=== PATIENT | male | born 1985 | race Caucasian/White ===

== ENCOUNTER 2016-06-04 09:38 | Emergency (ER) | payer SELFPAY ==
[2016-06-04] MEDS ORDERED: OXYCODONE-ACETAMINOPHEN 5-325 MG TABLET PO ONE (10:26)
--- NOTE | 2016-06-04 10:28 | ER Document Report ---
ED Medical Screen (RME) - General Chief Complaint: Abscess Stated Complaint: ELBOW PAIN Time seen by provider: 10:23 Mode of Arrival: Ambulatory Information source: Patient TRAVEL OUTSIDE OF THE [place] IN LAST 30 DAYS: No - HPI Patient complains to provider of: ABSCESS LEFT ELBOW Onset: Other - 2 DAYS Onset/Duration: Gradual Quality of pain: Throbbing Severity: Moderate Pain Level: 4 Associated Symptoms: Other - SWELLING AND DRAINING RIGHT ELBOW Exacerbated by: Movement Relieved by: Denies Similar symptoms previously: Yes - HX MRSA Recently seen / treated by doctor: No - Related Data Smoking: Non-smoker Frequency of alcohol use: None Drug Abuse: None Pertinent History: HOSPITALIZED FOR 7 DAYS WITH ABSCESSES/MRSA Allergies/Adverse Reactions: Sulfa (Sulfonamide Antibiotics) Allergy (Verified 06/04/16 10:08) Past Medical History - Past Medical History Cardiac Medical History: Reports: Hx Hypertension Musculoskeltal Medical History: Reports Hx Arthritis Skin Medical History: Reports Hx MRSA Psychiatric Medical History: Reports: Hx Depression Infectious Medical History: Reports: Hx MRSA Past Surgical History: Reports: Hx Orthopedic Surgery - left ACL repair - Immunizations Hx Diphtheria, Pertussis, Tetanus Vaccination: No
[2016-06-04 10:59] LABS: ABSOLUTE EOSINOPHILS # (AUTO) 0.1 10^3/uL (0.0-0.6); ABSOLUTE LYMPHOCYTES (AUTO) 1.6 10^3/uL (0.5-4.7); ABSOLUTE NEUT (AUTO) 10.8 10^3/uL (1.7-8.2); BASOPHILS % (AUTO) 0.3 % (0-2); EOSINOPHILS % (AUTO) 0.6 % (0-6); HEMATOCRIT 36.5 % (37.9-51.0); HEMOGLOBIN 12.4 g/dL (13.5-17.0); HGB HCT DIFFERENCE 0.7; LYMPHOCYTES % (AUTO) 11.7 % (13-45); MEAN CORPUSCULAR HEMOGLOBIN 28.9 pg (27.0-33.4); MEAN CORPUSCULAR VOLUME 85 fl (80-97); MONOCYTES % (AUTO) 7.4 % (3-13); RED BLOOD COUNT 4.29 10^6/uL (4.35-5.55); RED CELL DISTRIBUTION WIDTH 13.5 % (11.5-14.0); WHITE BLOOD COUNT 13.4 10^3/uL (4.0-10.5)
[2016-06-04] MEDS ORDERED: CEFTRIAXONE 1 GM/D5W RTU 50 ML IV ONE (11:10)
[2016-06-04] MEDS ORDERED: LIDOCAINE 1%/EPINEPHRINE INJ 20 ML VIAL INJ ONE (11:14)
[2016-06-04 11:20] LABS: ALANINE AMINOTRANSFERASE 30 U/L (21-72); ALBUMIN 3.8 g/dL (3.5-5.0); ALKALINE PHOSPHATASE 54 U/L (38-126); ANION GAP 10 (5-19); ASPARTATE AMINO TRANSFERASE 24 U/L (17-59); BILIRUBIN,TOTAL 0.3 mg/dL (0.2-1.3); BLOOD UREA NITROGEN 11 mg/dL (7-20); CALCIUM 9.2 mg/dL (8.4-10.2); CARBON DIOXIDE 29 mmol/L (22-30); CHLORIDE 101 mmol/L (98-107); CREATININE RESULT 0.77 mg/dL (0.52-1.25); GLUCOSE 91 mg/dL (75-110); POTASSIUM 4.4 mmol/L (3.6-5.0); SODIUM 139.7 mmol/L (137-145); TOTAL PROTEIN 6.3 g/dL (6.3-8.2)
--- NOTE | 2016-06-04 12:41 | ER Document Report ---
ED Skin Rash/Insect Bite/Abscs - General Chief Complaint: Abscess Stated Complaint: ELBOW PAIN Mode of Arrival: Ambulatory Notes: Patient has a painful, erythematous, swollen right elbow which he says began as a small questionable bite at the elbow Friday. It's been progressively enlarging since then. Last night, he accidentally hit the elbow against a wall and it started draining pus. He has had previous abscesses that had to be drained, but not in this location. Does not have any fevers. No medical illnesses. Allergic to sulfa. TRAVEL OUTSIDE OF THE [place] IN LAST 30 DAYS: No - Related Data Allergies/Adverse Reactions: Sulfa (Sulfonamide Antibiotics) Allergy (Verified 06/04/16 10:08) Past Medical History - General Information source: Patient - Social History Smoking Status: Smoker,Current Status Unk Cigarette use (# per day): No Frequency of alcohol use: None Drug Abuse: None Family History: Reviewed & Not Pertinent, CAD, CVA, Hypertension Patient has suicidal ideation: No - Past Medical History Cardiac Medical History: Reports: Hx Hypertension Musculoskeltal Medical History: Reports Hx Arthritis Skin Medical History: Reports Hx MRSA Psychiatric Medical History: Reports: Hx Depression Infectious Medical History: Reports: Hx MRSA Past Surgical History: Reports: Hx Orthopedic Surgery - left ACL repair - Immunizations Hx Diphtheria, Pertussis, Tetanus Vaccination: No Review of Systems - Review of Systems Constitutional: denies: Fever Cardiovascular: denies: Chest pain Respiratory: denies: Cough, Short of breath, Wheezing Gastrointestinal: denies: Abdominal pain, Diarrhea, Vomiting Skin: See HPI Physical Exam - Vital signs Vitals: Temp Pulse Resp BP Pulse Ox 98.9 F 58 L 20 114/55 L 99 06/04/16 12:52 06/04/16 12:52 06/04/16 12:52 06/04/16 12:52 06/04/16 12:52 Interpretation: Normal - Notes Notes: PHYSICAL EXAMINATION: GENERAL: Well-appearing, in no acute distress. Vital signs are all essentially normal. HEAD: Atraumatic, normocephalic. LUNGS: Breath sounds clear and equal bilaterally. HEART: Regular rate and rhythm without murmurs. ABDOMEN: Soft, nontender. No guarding or rebound. EXTREMITIES: Right elbow is swollen, erythematous, and tender to touch at the olecranon. There is some break in the skin at the olecranon with what looks like some small amount of pus oozing out. No pain to move the elbow joint through full range of motion. All other joints are with normal range of motion without pain. SKIN: Warm, dry, no rashes. Course - Vital Signs Vital signs: Temp Pulse Resp BP Pulse Ox 98.9 F 58 L 20 114/55 L 99 06/04/16 12:52 06/04/16 12:52 06/04/16 12:52 06/04/16 12:52 06/04/16 12:52 - Laboratory Result Diagrams: 06/04/16 10:35 06/04/16 10:35 Laboratory results interpreted by me: 06/04/16 10:35 WBC 13.4 H RBC 4.29 L Hgb 12.4 L Hct 36.5 L Seg Neutrophils % 80.0 H Lymphocytes % 11.7 L Absolute Neutrophils 10.8 H Procedures - Incision and Drainage Right Elbow Type: Simple Anesthetic type: 1% Lidocaine w/epi mL's of anesthetic: 4 Blade size: 11 I&D procedure: Betadine prep applied Incision Method: Incision made by scalpel Amount/type of drainage: 5 mL pus Notes: 06/04/16 21:24 After cleansing with Betadine, a small amount of Xylocaine with epinephrine was injected at the central point of this apparent abscess and cellulitis. A small amount of pus was obtained initially. A culture was obtained. Then, I opened the wound up some more and got a small amount more pus out. Total pus probably about 5 mL. Discharge - Discharge Clinical Impression: Abscess of bursa of right elbow Condition: Stable Disposition: HOME, SELF-CARE Additional Instructions: ABSCESS: You have an abscess (boil). This a pus-forming infection, usually due to staph. Some boils may be left to drain on their own, but most require lancing. From the time the tender lump first appears, it may be three or four days before the abscess is ready to davina. Local heat and rest help at this stage of treatment. An antibiotic may prevent spread of the infection. Once the abscess is opened, packing may be placed into it. This is done so pus is not sealed inside by premature closure of the cavity. The packing will be removed at your follow-up visit or you may be advised to remove it yourself at home. Sometimes this packing must be replaced a few times during healing. The wound will heal with surprisingly little scar. Depending on the size and location of an abscess, healing can take one to four weeks. You may shower and wash the area around the incision site two or three times a day. Antibiotics may be prescribed, but are usually not necessary after an abscess has been drained. If you develop fever, chills, worsening pain, or increasing swelling in the area, call the doctor or return immediately. POST INCISION AND DRAINAGE: You have had an incision made to allow drainage of an abscess. The incision must remain open so that pus and debris can drain from the wound. If the abscess cavity is large, packing is placed. This keeps the tissues from collapsing and trapping pus inside, while the body shrinks the cavity. The packing may need to be replaced every day or two. The physician will instruct you on the packing. Keep a bulky dressing over the area. Replace it if it becomes saturated with blood or pus. Do not disturb the packing (if present). You may shower and cleanse the area with gentle soap and warm water two or three times a day. Local warmth may be soothing, and may promote faster healing. Return if you develop high fever or chills, or if you note spreading redness, increasing swelling, or increasing tenderness. MRSA CELLULITIS: You have an infection of your skin and underlying soft tissues called cellulitis. This is due to bacteria, which can enter through any break in the skin, or even through an irritated hair follicle. Untreated, cellulitis will usually worsen and may form an abscess which requires draining. Although many bacterial organisms can cause cellulitis and abscess formations, the most likely bacteria is Methicillin-Resistant Staph Aureus, or MRSA for short. Antibiotics are required. Usually, warm packs or warm soaks, and elevation of the infected area are recommended. You should start getting better within 24 to 36 hours. Most infections respond quickly to the right medication. Follow-up care is important, however, to check for abscess (boil) formation, unsuspected foreign body, or resistant infection. If you develop fever, chills, or if the area of infection is becoming rapidly more swollen or painful, call the doctor at once. Rocephin You have been given an injection of an antibiotic called Rocephin ( ceftriaxone). Sometimes the injection must be combined with antibiotic pills. For some infections, such as an uncomplicated ear infection, Rocephin provides all the antibiotic that's needed. The antibiotic will be in your body for about two days. For serious infections, we usually repeat doses of Rocephin daily. Side effects are very unusual following a shot. Women may develop vaginal yeast infections, and babies can get yeast (thrush) in the mouth following the use of antibiotics. Contact your physician if you have symptoms with this medication. Allergy to this antibiotic can result in hives, wheezing, faintness, or itching. If symptoms of allergy occur, call the doctor at once. CEPHALEXIN: The antibiotic you've been prescribed is a member of the cephalosporin class. This type of antibiotic covers a wide variety of infections, including those of the skin, lungs, and urinary tract. It's useful for staph infections. This antibiotic is slightly similar to the penicillin family. In rare cases , a person who is allergic to penicillin will also be allergic to this medication. If you have had a severe allergic reaction to penicillin, and have not taken this antibiotic since that time, notify your doctor. Antibiotics which cover many germs ("broad spectrum" antibiotics) are more likely to cause diarrhea or "yeast" infections. Women prone to vaginal yeast problems may suffer an attack after taking this antibiotic. In infants, oral thrush (white spots "stuck" on the cheek) or yeast diaper rash may result. See your doctor if these problems occur. Call at once if you develop itching, hives , shortness of breath, or lightheadedness. DOXYCYCLINE: Doxycycline (Vibramycin, Doryx) is an antibiotic of the tetracycline family. This type of drug is useful for infections of the respiratory tract and genital tract, and is sometimes used for intestinal infections. Unlike most tetracyclines, doxycycline can be taken with food. It is longer acting, and (usually) less prone to side effects than regular tetracycline. Tetracycline antibiotics can stain immature teeth and SHOULD NOT BE TAKEN BY CHILDREN, NURSING MOTHERS, OR WOMEN. Tetracyclines can make you more prone to sunburn. Abdominal cramping, nausea, and diarrhea are occasional side effects. Women may experience vaginal yeast infections. Call the doctor at once if you develop hives, itching, shortness of breath , or lightheadedness. FOLLOW-UP CARE: Most simple abscesses will not require a follow up visit. If you had packing placed in the abscess, remove it as instructed by the physician. If you have been referred to a physician for follow-up care, call the physicians office for an appointment as you were instructed or within the next two days. If you experience worsening or a significant change in your symptoms, return to the Emergency Department at any time for re-evaluation. You should get in the shower and let warm water run on to the right elbow for 3- 4 minutes at least twice a day for the next few days. Dry dressing after that. Take the medications as prescribed. Return if any worsening of symptoms tomorrow, such as fever, etc. Return if no improvement in 48 hours. Prescriptions: Cephalexin Monohydrate [Keflex 500 mg Capsule] 500 mg PO QID #25 capsule Doxycycline Hyclate 100 mg PO BID #14 capsule
[2016-06-04 12:53] VITALS: BP 114/55
== END 2016-06-04 12:54 | disposition home or self-care (01) ==
LOC: ER 09:38
PROC: 0H9DXZZ Drainage of Right Lower Arm Skin, External Approach (ICD-10-PCS; principal; 2016-06-04)
DX: M71.021 Abscess of bursa, right elbow (principal); I10 Essential (primary) hypertension; Z88.2 Allergy status to sulfonamides; Z86.14 Personal history of Methicillin resistant Staphylococcus aureus infection
CPT/HCPCS: 99283; 96365; 36415; 87070; 87205; 85025; 87075; 87077; 80053; 87186; 73080; 10060; J3490; J0696

== ENCOUNTER 2018-02-12 10:51 | Emergency (ER) | payer SELFPAY ==
[2018-02-12 10:56] VITALS: BP 128/75
--- NOTE | 2018-02-12 10:57 | ER Document Report ---
HPI - HPI Patient complains to provider of: Left eye pain Onset: This morning Pain Level: 2 Context: 32-year-old male that wears contacts thinks he got Dial soap in his left eye this morning it was very red and is very sensitive to light and having trouble opening the eye due to pain. Is unable to do the eye chart at this time because of blurred vision in that left eye. No problems with the right eye. He states he cannot get his contact out of his left eye. Associated Symptoms: None Exacerbated by: Denies Relieved by: Denies Similar symptoms previously: No Recently seen / treated by doctor: No - ROS ROS below otherwise negative: Yes Systems Reviewed and Negative: Yes All other systems reviewed and negative Past Medical History - General Information source: Patient - Social History Smoking Status: Current Every Day Smoker Lives with: Family Family History: Reviewed & Not Pertinent, CAD, CVA, Hypertension - Past Medical History Cardiac Medical History: Reports: Hx Hypertension Musculoskeletal Medical History: Reports Hx Arthritis Skin Medical History: Reports Hx MRSA Psychiatric Medical History: Reports: Hx Depression Infectious Medical History: Reports: Hx MRSA Past Surgical History: Reports: Hx Orthopedic Surgery - left ACL repair - Immunizations Hx Diphtheria, Pertussis, Tetanus Vaccination: No Vertical Provider Document - CONSTITUTIONAL Agree With Documented VS: Yes Exam Limitations: No Limitations - INFECTION CONTROL TRAVEL OUTSIDE OF THE [place] IN LAST 30 DAYS: No - HEENT HEENT: Conjuctival Injection Notes: Contact lens removed, 1 mm corneal ulcer at 5:00, No other abrasion. Pupils equal and reactive to light. Patient able to read small print at 12 inches with his left eye., Unable to do the long distance vision. - NECK Neck: Supple. negative: Lymphadenopathy-Left, Lymphadenopathy-Right - NEURO Level of Consciousness: Awake, Alert - DERM Integumentary: Warm, Dry Course - Re-evaluation Re-evalutation: 02/12/18 11:28 Call to [facility]. She does not want him to have Acular to go home with. Give him Cyclogyl 1% 3 times a day for eye pain. The Besivance he is to use 1 drop every hour for the next 24 hours and then reduce to 4 times a day over the next several days after that. He understands the instructions. His dad has been shown the size of the corneal ulcer and knows to bring him back if it gets larger. 02/12/18 12:34 - Vital Signs Vital signs: Temp Pulse Resp BP Pulse Ox 97.6 F 74 14 128/75 H 99 02/12/18 10:54 02/12/18 10:54 02/12/18 10:54 02/12/18 10:54 02/12/18 10:54 Discharge - Discharge Clinical Impression: Central corneal ulcer, left eye, Wears contact lenses Condition: Good Disposition: HOME, SELF-CARE Instructions: Corneal Ulceration ([facility]) Additional Instructions: no contact lense in left eye see the eye doctor on Friday- call the hospital simplex operator who can get up with Dr. Vega who can check your eye on Friday besivance eye drops 1 drop every hour for first 24 hours, decrease gradually each day to four times per day over the next few days cyclogel is a dilating drop to use up to 1 drop three times per day to reduce the pain, stop when no more pain to er if worse Prescriptions: Besifloxacin HCl [Besivance Drops] 1 drp OS ASDIR PRN #1 [id number] PRN Reason: Referrals: [facility] MD [ACTIVE STAFF] - 02/16/18 (call the hospital simplex operator [phone] and they will get up with Dr. Vega and if she can get into the office she will see you on Friday)
[2018-02-12] MEDS ORDERED: TETRACAINE HCL 0.5% OPH SOLN 0.6 ML DROPERETTE OS ONE (10:58)
[2018-02-12] MEDS ORDERED: KETOROLAC TROMETHAMINE 0.45% 4 DROP/0.4 ML DROPERETTE OS ONE (11:20)
[2018-02-12] MEDS ORDERED: BESIFLOXACIN HCL 0.6% OPH SUSP 5 ML BOTTLE OS ONE (11:20)
[2018-02-12] MEDS ORDERED: CYCLOPENTOLATE HCL 1% OPH SOLN 2 ML OS ONE (11:33)
== END 2018-02-12 12:00 | disposition home or self-care (01) ==
LOC: ER 10:51
DX: H57.12 Ocular pain, left eye (principal); H16.002 Unspecified corneal ulcer, left eye; F17.200 Nicotine dependence, unspecified, uncomplicated; I10 Essential (primary) hypertension; Z86.14 Personal history of Methicillin resistant Staphylococcus aureus infection
CPT/HCPCS: 99283; J3490

== ENCOUNTER 2018-09-11 21:22 | Emergency (ER) | payer SELFPAY ==
[2018-09-11 22:14] VITALS: BP 148/90
[2018-09-12] MEDS ORDERED: GABAPENTIN 300 MG CAPSULE PO ONE (00:14)
[2018-09-12] MEDS ORDERED: CLONIDINE 0.1 MG/24 HR PATCH.TDWK TD ONE (00:14)
[2018-09-12] MEDS ORDERED: ONDANSETRON ODT 4 MG TAB (6 TAB/ER DISP) PO PRN (00:14)
--- NOTE | 2018-09-12 00:16 | ER Document Report ---
ED General - General Chief Complaint: Other Stated Complaint: POSSIBLE WITHDRAWL Time Seen by Provider: 09/11/18 23:44 Notes: Patient is a 33-year-old male with a history of opiate abuse and dependence who presents concerned for withdrawals from opiates. Stop Percocet 5 days ago states that since that time he has had uncontrollable rage, insomnia cannot sleep has had nausea, vomiting and loose stools. States that symptoms started gradually, progressively worsened since onset. Are severe in nature. Nothing seems to improve or worsen his symptoms. Has never gone through opiate withdrawal in the past. Came to the emergency department seeking assistance with his symptoms. Does not have a primary care physician. Has not had fever, constitutional symptoms, focal weakness, numbness. TRAVEL OUTSIDE OF THE [place] IN LAST 30 DAYS: No - Related Data Allergies/Adverse Reactions: Sulfa (Sulfonamide Antibiotics) Allergy (Verified 02/12/18 10:51) Past Medical History - General Information source: Patient - Social History Smoking Status: Never Smoker Frequency of alcohol use: None Drug Abuse: Prescription drugs Lives with: Family Family History: Reviewed & Not Pertinent, CAD, CVA, Hypertension Patient has suicidal ideation: No Patient has homicidal ideation: No - Past Medical History Cardiac Medical History: Reports: Hx Hypertension Renal/ Medical History: Denies: Hx Peritoneal Dialysis Musculoskeletal Medical History: Reports Hx Arthritis Skin Medical History: Reports Hx MRSA Psychiatric Medical History: Reports: Hx Depression Infectious Medical History: Reports: Hx MRSA Past Surgical History: Reports: Hx Orthopedic Surgery - left ACL repair - Immunizations Hx Diphtheria, Pertussis, Tetanus Vaccination: No Review of Systems - Review of Systems Notes: Constitutional: Negative for fever. HENT: Negative for sore throat. Eyes: Negative for visual changes. Cardiovascular: Negative for chest pain. Respiratory: Negative for shortness of breath. Gastrointestinal: Negative for abdominal pain, positive for nausea, loose stools Genitourinary: Negative for dysuria. Musculoskeletal: Negative for back pain. Skin: Negative for rash. Neurological: Negative for headaches, weakness or numbness. 10 point ROS negative except as marked above and in HPI. Physical Exam - Vital signs Vitals: Temp Pulse Resp BP Pulse Ox 98.4 F 63 20 148/90 H 100 09/11/18 22:13 09/11/18 22:13 09/11/18 22:13 09/11/18 22:13 09/11/18 22:13 Interpretation: Hypertensive Notes: PHYSICAL EXAMINATION: GENERAL: Appears uncomfortable but in no acute distress HEAD: Atraumatic, normocephalic. EYES: Pupils equal round and reactive to light, extraocular movements intact, sclera anicteric, conjunctiva are normal. ENT: nares patent, oropharynx clear without exudates. Moist mucous membranes. NECK: Normal range of motion, supple without lymphadenopathy LUNGS: Breath sounds clear to auscultation bilaterally and equal. No wheezes rales or rhonchi. HEART: Regular rate and rhythm without murmurs ABDOMEN: Soft, nontender, normoactive bowel sounds. No guarding, no rebound. No masses appreciated. EXTREMITIES: Normal range of motion, no pitting or edema. No cyanosis. NEUROLOGICAL: No focal neurological deficits. Moves all extremities spontaneously and on command. PSYCH: Somewhat anxious, restless SKIN: Warm, Dry, normal turgor, superficial abrasions over the bilateral knuckles Course - Re-evaluation Re-evalutation: 09/12/18 00:15 Patient presents with concerns of opiate withdrawal. Patient last used Percocet 5 days ago, has been having nausea, vomiting, insomnia, aggression. Is requesting assistance. He is not open to Suboxone therapy. We will place a clonidine patch 0.1 mg as patient can keep for 1 week. Gabapentin 600 mg nightly. Zofran as needed for nausea and vomiting. Denies suicidal or homicidal ideation. Physical examination notable for scratches over the hands, forehead the patient denies any concerns regarding his areas, states tetanus is up-to-date. Physical exam otherwise unremarkable. Vitals within acceptable limits be a mild hypertension. At this time will discharge with return precautions and follow-up recommendations. Verbal discharge instructions given a the bedside and opportunity for questions given. Medication warnings reviewed. Patient is in agreement with this plan and has verbalized understanding of return precautions and the need for primary care follow-up in the next 24-72 hours. - Vital Signs Vital signs: Temp Pulse Resp BP Pulse Ox 98.4 F 63 20 148/90 H 100 09/11/18 22:13 09/11/18 22:13 09/11/18 22:13 09/11/18 22:13 09/11/18 22:13 Discharge - Discharge Clinical Impression: Opiate withdrawal Insomnia Qualifiers: Insomnia type: unspecified Qualified Code(s): G47.00 - Insomnia, unspecified Condition: Good Disposition: HOME, SELF-CARE Additional Instructions: Your seen today for concerns of withdrawing from opiates. Opiate withdrawal is very uncomfortable but is not dangerous. The acute withdrawal phase will last for approximately 1 week and will consist of body aches, headache, nausea, vomiting, diarrhea, and abdominal pain. Sleeping can be difficult. You may also feel depressed or anxious. After the acute withdrawal is finished, it is very common to have chronic opiate withdrawal that can last for months. This can consist of feeling depressed and having cravings for opiates. I strongly encourage you to enroll in an outpatient rehab program and consider going on a medication such as Suboxone to prevent relapse. To help manage your acute withdrawal symptoms your are being sent home with a clonidine patch on. You may keep this patch on for up to 1 week. You have also been sent home with a prescription for a medication called gabapentin. You may take 600 mg nightly again to assist with sleep and withdrawal symptoms. You may take the Zofran also known as ondansetron that she were sent home with as needed for nausea and vomiting. Please return if you become suicidal, have persistent vomiting that prevents you from being able to take fluids for more than 12 hours, you pass out, or you have any other symptoms that are worrisome to you. Prescriptions: Gabapentin 600 mg PO QHS #15 tablet
== END 2018-09-12 00:30 | disposition home or self-care (01) ==
LOC: ER 21:22
DX: F11.23 Opioid dependence with withdrawal (principal); G47.00 Insomnia, unspecified; R11.2 Nausea with vomiting, unspecified; R19.7 Diarrhea, unspecified; Z88.2 Allergy status to sulfonamides; I10 Essential (primary) hypertension; Z86.14 Personal history of Methicillin resistant Staphylococcus aureus infection
CPT/HCPCS: 99283; J3490

== ENCOUNTER 2018-10-09 22:49 | Emergency (ER) | payer OTHER ==
[2018-10-10] MEDS ORDERED: LIDOCAINE 5% (700 MG) TRANSDERMAL ADH..PATCH TP ONE (02:31)
[2018-10-10] MEDS ORDERED: IBUPROFEN 600 MG TABLET PO ONE (02:31)
[2018-10-10] MEDS ORDERED: ACETAMINOPHEN 325 MG TABLET PO ONE (02:31)
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
[2018-10-10 04:07] VITALS: BP 134/88
== END 2018-10-10 04:23 | disposition home or self-care (01) ==
LOC: ER 22:49
DX: R07.81 Pleurodynia (principal); M25.512 Pain in left shoulder; M54.2 Cervicalgia; M54.5 Low back pain; V89.2XXA Person injured in unspecified motor-vehicle accident, traffic, initial encounter; Z88.2 Allergy status to sulfonamides; I10 Essential (primary) hypertension; Z86.14 Personal history of Methicillin resistant Staphylococcus aureus infection
CPT/HCPCS: 71046; 72070; 99283

== ENCOUNTER 2019-05-23 22:20 | Emergency (ER) | payer OTHER ==
[2019-05-23] MEDS ORDERED: ACETAMINOPHEN 325 MG TABLET PO ONE (23:16)
[2019-05-23] MEDS ORDERED: KETOROLAC TROMETHAMINE 60 MG/2 ML SDV IM ONE (23:56)
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
[2019-05-24] MEDS ORDERED: HYDROCODONE/ACETAMINOPHEN 5-325 MG TABLET PO ONE (01:25)
[2019-05-24] MEDS ORDERED: HYDROCODONE/ACETAMINOPHEN 5-325 MG (6 TAB/ER DISP) PO PRN (02:23)
[2019-05-24 02:45] VITALS: BP 150/85
== END 2019-05-24 02:43 | disposition home or self-care (01) ==
LOC: ER 22:20
PROC: 2W3CX1Z Immobilization of Right Lower Arm using Splint (ICD-10-PCS; principal; 2019-05-23)
DX: S52.514A Nondisplaced fracture of right radial styloid process, initial encounter for closed fracture (principal); S80.02XA Contusion of left knee, initial encounter; M25.531 Pain in right wrist; M25.562 Pain in left knee; V86.96XA Unspecified occupant of dirt bike or motor/cross bike injured in nontraffic accident, initial encounter; I10 Essential (primary) hypertension
CPT/HCPCS: 99283; 96372; 73564; 73110; 29125; L1830; J1885

== ENCOUNTER 2020-03-28 10:56 | Emergency (ER) | payer SELFPAY ==
[2020-03-28] MEDS ORDERED: IPRATROPIUM/ALBUTEROL 0.5-2.5 MG/3 ML AMPUL NEB ONE (11:29)
--- NOTE | 2020-03-28 11:33 | ER Document Report ---
ED Medical Screen (RME) - General Chief Complaint: Chest Pain Stated Complaint: CHEST PAIN Time Seen by Provider: 03/28/20 11:25 TRAVEL OUTSIDE OF THE [place] IN LAST 30 DAYS: No - HPI Notes: 03/28/20 11:31 34 year male presents today with complaints of chest pain that is been occurring for the last week intermittently, denies any radiation of pain. 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 Patient has tried [id number] Mucinex without relief. Patient denies any prior history of any chest pains. Reports family history of his father with hypertension hyperlipidemia on the same for his mother. Patient states he smokes marijuana 2-3 times a week to help with his back pain. Denies any fevers or chills, headache, nausea vomiting or diarrhea. I have greeted and performed a rapid initial assessment of this patient. A comprehensive ED assessment and evaluation of the patient, analysis of test results and completion of the medical decision making process will be conducted by additional ED providers. PHYSICAL EXAMINATION: GENERAL: Well-appearing, well-nourished and in no acute distress. CV: s1, s2 regular LUNGS: Wheezing in all lobes Musculoskeletal: Normal range of motion NEUROLOGICAL: Normal speech, normal gait. SKIN: Warm, Dry, normal turgor, no rashes or lesions noted. - Related Data Allergies/Adverse Reactions: Sulfa (Sulfonamide Antibiotics) Allergy (Verified 03/28/20 11:26) Past Medical History - Past Medical History Cardiac Medical History: Reports: Hx Hypertension Renal/ Medical History: Denies: Hx Peritoneal Dialysis Musculoskeltal Medical History: Reports Hx Arthritis Skin Medical History: Reports Hx MRSA Psychiatric Medical History: Reports: Hx Depression Infectious Medical History: Reports: Hx MRSA Past Surgical History: Reports: Hx Orthopedic Surgery - left ACL repair - Immunizations Hx Diphtheria, Pertussis, Tetanus Vaccination: No Physical Exam - Vital signs Vitals: Temp Pulse Resp BP Pulse Ox 98.2 F 80 16 157/90 H 99 03/28/20 11:19 03/28/20 11:19 03/28/20 11:19 03/28/20 11:19 03/28/20 11:19 Course - Vital Signs Vital signs: Temp Pulse Resp BP Pulse Ox 98.2 F 80 16 157/90 H 99 03/28/20 11:19 03/28/20 11:19 03/28/20 11:19 03/28/20 11:19 03/28/20 11:19
[2020-03-28 11:54] LABS: ABSOLUTE BASOPHILS # (AUTO) 0.1 10^3/uL (0.0-0.2); ABSOLUTE EOSINOPHILS # (AUTO) 0.2 10^3/uL (0.0-0.6); ABSOLUTE LYMPHOCYTES (AUTO) 2.1 10^3/uL (0.5-4.7); ABSOLUTE MONOCYTES (AUTO) 0.7 10^3/uL (0.1-1.4); ABSOLUTE NEUT (AUTO) 6.9 10^3/uL (1.7-8.2); BASOPHILS % (AUTO) 0.8 % (0-2); EOSINOPHILS % (AUTO) 1.7 % (0-6); HEMATOCRIT 44.4 % (37.9-51.0); HEMOGLOBIN 15.3 g/dL (13.5-17.0); LYMPHOCYTES % (AUTO) 21.2 % (13-45); MEAN CORPUSCULAR HEMOGLOBIN 31.1 pg (27.0-33.4); MEAN CORPUSCULAR HGB CONC 34.5 g/dL (32.0-36.0); MEAN CORPUSCULAR VOLUME 90 fl (80-97); MONOCYTES % (AUTO) 6.8 % (3-13); PLATELET COUNT 352 10^3/uL (150-450); RED BLOOD COUNT 4.92 10^6/uL (4.35-5.55); RED CELL DISTRIBUTION WIDTH 13.8 % (11.5-14.0); SEGMENTED NEUTROPHILS % (AUTO) 69.5 % (42-78); TOTAL CELLS COUNTED % (AUTO) 100 %; WHITE BLOOD COUNT 9.9 10^3/uL (4.0-10.5)
[2020-03-28 12:06] LABS: ALBUMIN 4.4 g/dL (3.5-5.0); ALKALINE PHOSPHATASE 68 U/L (38-126); ANION GAP 11 (5-19); ASPARTATE AMINO TRANSFERASE 24 U/L (17-59); BILIRUBIN,DIRECT 0.2 mg/dL (0.0-0.4); BILIRUBIN,TOTAL 0.5 mg/dL (0.2-1.3); BLOOD UREA NITROGEN 11 mg/dL (7-20); CARBON DIOXIDE 24 mmol/L (22-30); CHLORIDE 105 mmol/L (98-107); GLUCOSE 92 mg/dL (75-110); POTASSIUM 4.6 mmol/L (3.6-5.0); TOTAL PROTEIN 7.2 g/dL (6.3-8.2)
--- NOTE | 2020-03-28 12:43 | RADIOLOGY REPORT (SQ) ---
EXAM DESCRIPTION: CHEST SINGLE VIEW IMAGES COMPLETED DATE/TIME: 03/28/2020 12:32 pm REASON FOR STUDY: chest pain COMPARISON: 10/10/2018 EXAM PARAMETERS: NUMBER OF VIEWS: One view. TECHNIQUE: Single frontal radiographic view of the chest acquired. RADIATION DOSE: NA LIMITATIONS: None. FINDINGS: LUNGS AND PLEURA: No opacities, masses or pneumothorax. No pleural effusion. MEDIASTINUM AND HILAR STRUCTURES: No masses. Contour normal. HEART AND VASCULAR STRUCTURES: Heart normal in size. Normal vasculature. BONES: No acute findings. HARDWARE: None in the chest. OTHER: No other significant finding. IMPRESSION: 1. And again interval changes since the prior study dated 05/12/2019. No acute finding s. TECHNICAL DOCUMENTATION: JOB ID: [id number] 2010 [employer]- All Rights Reserved Reading location - IP/workstation name: [email or web address]
--- NOTE | 2020-03-28 12:59 | EKG REPORT ---
SEVERITY:- NORMAL ECG - SINUS RHYTHM : Confirmed by: Uri Dow MD 28-Mar-2020 12:58:28
--- NOTE | 2020-03-28 14:53 | ER Document Report ---
ED Respiratory Problem - General Chief Complaint: Cough Stated Complaint: CHEST PAIN Time Seen by Provider: 03/28/20 11:25 Primary Care Provider: POWER WADE [Primary Care Provider] - Follow up as needed Mode of Arrival: Ambulatory Information source: Patient TRAVEL OUTSIDE OF THE [place] IN LAST 30 DAYS: No - HPI Notes: Patient presents with displaced proximally 1 week of cough productive of some yellow-green sputum. He is also had some generalized fatigue and body aches. He is also had some chest heaviness. The symptoms are mild to moderate. He has had only minimal relief with [id number] medicines. It is worse with exertion and better with rest. No fever sweats or chills. - Related Data Allergies/Adverse Reactions: Sulfa (Sulfonamide Antibiotics) Allergy (Verified 03/28/20 11:26) Past Medical History - General Information source: Patient - Social History Smoking Status: Never Smoker Chew tobacco use (# tins/day): No Frequency of alcohol use: Occasional Drug Abuse: Marijuana Family History: Reviewed & Not Pertinent, CAD, CVA, Hypertension Patient has homicidal ideation: No - Past Medical History Cardiac Medical History: Reports: Hx Hypertension Renal/ Medical History: Denies: Hx Peritoneal Dialysis Musculoskeletal Medical History: Reports Hx Arthritis Skin Medical History: Reports Hx MRSA Psychiatric Medical History: Reports: Hx Depression Infectious Medical History: Reports: Hx MRSA Past Surgical History: Reports: Hx Orthopedic Surgery - left ACL repair - Immunizations Hx Diphtheria, Pertussis, Tetanus Vaccination: No Review of Systems - Review of Systems Constitutional: Malaise. denies: Chills, Fever Cardiovascular: Chest pain. denies: Palpitations Respiratory: Cough, Short of breath -: Yes All other systems reviewed and negative Physical Exam - Vital signs Vitals: Temp Pulse Resp BP Pulse Ox 98.2 F 80 16 157/90 H 99 03/28/20 11:19 03/28/20 11:19 03/28/20 11:19 03/28/20 11:19 03/28/20 11:19 Interpretation: Normal - General General appearance: Appears well, Alert - HEENT Head: Normocephalic, Atraumatic Eyes: Normal Pupils: PERRL - Respiratory Respiratory status: No respiratory distress Chest status: Nontender Breath sounds: Decreased air movement, Rhonchi Chest palpation: Normal - Cardiovascular Rhythm: Regular Heart sounds: Normal auscultation Murmur: No - Abdominal Inspection: Normal Distension: No distension Bowel sounds: Normal Tenderness: Nontender Organomegaly: No organomegaly - Back Back: Normal, Nontender - Extremities General upper extremity: Normal inspection, Nontender, Normal color, Normal ROM, Normal temperature General lower extremity: Normal inspection, Nontender, Normal color, Normal ROM, Normal temperature, Normal weight bearing. No: Mark's sign - Neurological Neuro grossly intact: Yes Cognition: Normal Orientation: AAOx4 Prashant Coma Scale Eye Opening: Spontaneous Prashant Coma Scale Verbal: Oriented Prashant Coma Scale Motor: Obeys Commands [place] Coma Scale Total: 15 Speech: Normal Motor strength normal: LUE, RUE, LLE, RLE Sensory: Normal - Psychological Associated symptoms: Normal affect, Normal mood - Skin Skin Temperature: Warm Skin Moisture: Dry Skin Color: Normal Course - Re-evaluation Re-evalutation: 03/28/20 14:54 Patient comes in with respiratory symptoms seems most consistent with a upper respiratory infection. He has had no known exposures to Covid and does not desire to be tested. No evidence of cardiac disease. Patient's blood pressure is also mild to moderately elevated and he has been educated that he will need to have his blood pressure rechecked within the week by a medical provider. - Vital Signs Vital signs: Temp Pulse Resp BP Pulse Ox 98.2 F 80 16 157/90 H 99 03/28/20 11:19 03/28/20 11:19 03/28/20 11:19 03/28/20 11:19 03/28/20 11:19 - Laboratory Result Diagrams: 03/28/20 11:40 03/28/20 11:40 - Diagnostic Test Radiology reviewed: Image reviewed, Reports reviewed - EKG Interpretation by Ri EKG shows normal: Sinus rhythm Rate: Normal - 72 Rhythm: NSR Almo/QRS: No: Right axis deviation, Left axis deviation Discharge - Discharge Clinical Impression: URI (upper respiratory infection) Qualifiers: URI type: unspecified URI Qualified Code(s): J06.9 - Acute upper respiratory infection, unspecified Condition: Stable Disposition: HOME, SELF-CARE Instructions: Upper Respiratory Illness ([facility]) Additional Instructions: Your blood pressure is mild to moderately elevated today. Please have this checked by a medical provider in the next week. Prescriptions: Prednisone [Deltasone 20 mg Tablet] 3 tab PO DAILY 5 Days tablet Albuterol Sulfate [Proair HFA Inhalation Aerosol 8.5 gm MDI] 1 - 2 puff IH Q4 PRN #1 mdi PRN Reason: Azithromycin [Zithromax 250 mg Tablet] 250 mg PO ASDIR PRN #6 tablet PRN Reason: Forms: Elevated Blood Pressure Referrals: [facility] [Provider Group] - Follow up in 3-5 days
[2020-03-28 15:05] VITALS: BP 153/115
== END 2020-03-28 15:05 | disposition home or self-care (01) ==
LOC: ER 10:56
DX: J06.9 Acute upper respiratory infection, unspecified (principal); R07.9 Chest pain, unspecified; M79.10 Myalgia, unspecified site; Z88.2 Allergy status to sulfonamides; Z86.14 Personal history of Methicillin resistant Staphylococcus aureus infection
CPT/HCPCS: 36415; 71045; 80053; 84484; 85025; 93005; 93010; 94640; 99285